=== PATIENT | female | born 1990 | race Caucasian/White ===

== ENCOUNTER 2022-01-23 08:45 | Emergency (ER) | payer MEDICAID ==
[~2022-01-23] VITALS: Ht 167.6 cm; Wt 61.0 kg
[2022-01-23 08:59] VITALS: BP 162/102
[2022-01-23] MEDS ORDERED: KETOROLAC 15MG/ML VIAL IM ONE (09:45)
== END 2022-01-23 11:34 | disposition left against medical advice (07) ==
LOC: ER 08:45
DX: R07.81 Pleurodynia (principal); W17.89XA Other fall from one level to another, initial encounter; Y93.89 Activity, other specified; Y92.89 Other specified places as the place of occurrence of the external cause
CPT/HCPCS: 71101; 99283; J1885

== ENCOUNTER 2025-01-19 12:05 | Emergency (ER) | payer MEDICAID ==
[~2025-01-19] VITALS: Ht 165.1 cm; Wt 56.0 kg
[2025-01-19 12:12] VITALS: O2SAT 100
[2025-01-19] MEDS ORDERED: CLINDAMYCIN 900 MG in DEXTROSE 5% WATER 50 ML IV ONE (15:30)
[2025-01-19 15:46] LABS: ADD RBC MORPHOLOGY YES; BASOPHILS % 0.3 % (0.0-2.0); EOSINOPHILS % 0.7 % (0.0-5.0); HEMATOCRIT. 32.0 % (36.0-48.0); HEMOGLOBIN. 10.0 g/dL (12.0-16.0); LYMPHOCYTES % 17.3 % (20.0-50.0); MEAN PLATELET VOLUME 7.6 fl (7.4-10.4); MONOCYTES % 13.8 % (2.0-8.0); NEUTROPHILS % 67.9 % (40.0-76.0); PLATELET 152 x1000/uL (130-400); RED BLOOD CELL COUNT 4.04 mill/uL (4.2-5.4); RED CELL DISTRIBUTION WIDTH 22.6 % (11.6-14.6)
[2025-01-19 15:56] LABS: INR 1.0
[2025-01-19 16:00] LABS: HCG SCREEN NEGATIVE
[2025-01-19 16:02] LABS: CREATININE 0.5 mg/dL (0.6-1.0); PLATELET ESTIMATE NORMAL; UREA NITROGEN BLOOD 6 mg/dL (9-23)
[2025-01-19 16:03] LABS: ASPARTATE AMINOTRANSFERASE 36 IU/L (<34)
[2025-01-19 16:04] LABS: BILIRUBIN DIRECT 0.3 mg/dL (<=3.0); BILIRUBIN TOTAL 1.0 mg/dL (0.1-1.0); PROTEIN TOTAL 7.7 g/dL (6.0-8.3)
[2025-01-19] MEDS: SODIUM CHLORIDE 0.9% (SEPSIS BOLUS) IV ONE (16:13)
[2025-01-19] MEDS: CLINDAMYCIN 900MG PREMIX 50 ML IV SCH (16:37)
[2025-01-19] MEDS ORDERED: DEXAMETHASONE 10 MG/ML VIAL IV ONE (17:15)
[2025-01-19] MEDS: IOHEXOL-300 100 ML BOTTLE ONE (17:22)
[2025-01-19 17:30] VITALS: TEMP 36.9
[2025-01-19 17:44] LABS: CLARITY URINE CLEAR (CLEAR); COLOR URINE YELLOW (YELLOW); GLUCOSE URINE NEGATIVE (NEGATIVE); KETONES URINE TRACE (NEGATIVE); LEUKOCYTE ESTERASE URINE NEGATIVE (NEGATIVE); NITRITE URINE NEGATIVE (NEGATIVE); OCCULT BLOOD URINE NEGATIVE (NEGATIVE); PH URINE 6.0 (4.5-8.0); PROTEIN URINE TRACE (NEGATIVE); SPECIFIC GRAVITY URINE 1.065 (1.005-1.030); UROBILINOGEN URINE 1.0 E.U./dL (0.2-1.0)
[2025-01-19 17:59] LABS: BACTERIA URINE TRACE; RBC URINE NONE SEEN /hpf (0-2); SQUAMOUS EPITHELIAL CELL URINE 1+ /lpf (RARE/1+); WBC URINE 0-2 /hpf (0-2)
[2025-01-19] MEDS: AMPICILLIN SOD/SULBACTAM NA 3 G in SODIUM CHLORIDE 0.9% 100 ML IV SCH (19:37)
[2025-01-19] MEDS: DEXAMETHASONE 10 MG/ML VIAL IV NR (19:46)
[2025-01-19 21:30] VITALS: BP 127/89; PULSE 81; RESP 17; O2SAT 100
[2025-01-21 09:10] LABS: ABSOLUTE BASOPHILS 0.0 x10E3/uL (0.0-0.2); ABSOLUTE EOSINOPHILS 0.1 x10E3/uL (0.0-0.4); ABSOLUTE LYMPHOCYTES 1.1 x10E3/uL (0.7-3.1); ABSOLUTE MONOCYTES 0.7 x10E3/uL (0.1-0.9); ABSOLUTE NEUTROPHILS 3.9 x10E3/uL (1.4-7.0); BASOPHILS 0 % (Not Estab.); EOSINOPHILS 1 % (Not Estab.); IMMATURE GRANULOCYTES 1 % (Not Estab.); IMMATURE GRANULOCYTES ABSOLUTE 0.1 x10E3/uL (0.0-0.1); LYMPHOCYTES 20 % (Not Estab.); MEAN CORPUSCULAR HGB CONC. 30.1 g/dL (31.5-35.7); MONOCYTES 11 % (Not Estab.); NEUTROPHILS 67 % (Not Estab.); PLATELETS 170 x10E3/uL (150-450); RBC 4.16 x10E6/uL (3.77-5.28); RED CELL DISTRIBUTION WIDTH 19.1 % (11.7-15.4); WBC 5.8 x10E3/uL (3.4-10.8)
[2025-01-21 15:09] LABS: % CD 3 POS. LYMPHOCYTES 77.0 % (57.5-86.2); % CD 4 POS. LYMPHOCYTES 61.3 % (30.8-58.5); % CD 8 POS. LYMPH 15.7 % (12.0-35.5); ABSOLUTE CD 3 847 /uL (622-2402); ABSOLUTE CD 4 HELPER 674 /uL (359-1519); ABSOLUTE CD 8 SUPPRESSOR 173 /uL (109-897)
== END 2025-01-19 22:25 | disposition short-term general hospital (02) ==
LOC: ER 12:26 → CMPBEDREQ 01-20 08:30
DX: R22.0 Localized swelling, mass and lump, head (principal); R07.0 Pain in throat; F10.90 Alcohol use, unspecified, uncomplicated; Z79.899 Other long term (current) drug therapy; Y90.9 Presence of alcohol in blood, level not specified
CPT/HCPCS: 99285; 96374; 70491; 96375; 71045; 96361; 86359; 86360; 80076; 80048; 81003; 84703; 83605; 85025; 85610; 87040; 87086; 36415; 84145; 93005; Q9967; J0295; J3490; J1100; J7050; J7030; J7060